=== PATIENT | male | born 1960 | race Caucasian/White ===

== ENCOUNTER 2017-02-21 11:00 | Day surgery (SDC) | payer MEDICARE, MEDICAID ==
[2017-02-20 13:15] LABS: BASOPHILS % (AUTO) 0.3 % (0-1); EOSINOPHILS # (AUTO) 0.2 X10'3 (0-0.9); EOSINOPHILS % (AUTO) 2.5 % (0-6); LYMPHOCYTES # (AUTO) 2.4 X10'3 (1.1-4.8); LYMPHOCYTES % (AUTO) 31.4 % (21-51); MEAN CORPUSCULAR HEMOGLOBIN 31.1 PG (27.0-31.0); MEAN CORPUSCULAR HGB CONC 33.6 % (33.0-36.5); MEAN CORPUSCULAR VOLUME 92.6 FL (78-98); MEAN PLATELET VOLUME 8.5 FL (7.4-10.4); MONOCYTES # (AUTO) 0.7 X10'3 (0-0.9); MONOCYTES % (AUTO) 8.8 % (2-12); NEUTROPHILS # (AUTO) 4.3 X10'3 (1.8-7.7); PRE OP HEMATOCRIT 40.7 % (42.0-52.0); PRE OP HEMOGLOBIN 13.7 g/dL (14.0-17.9); PRE OP PLATELET COUNT 262 X10'3 (140-440); RED BLOOD COUNT 4.39 X10'6 (4.70-6.10); RED CELL DISTRIBUTION WIDTH 13.8 % (11.5-14.5)
[2017-02-20 13:30] LABS: ALBUMIN 3.8 G/DL (3.4-5.0); ALKALINE PHOSPHATASE 54 IU/L (46-116); BLOOD UREA NITROGEN 17 MG/DL (7-18); BUN/CREATININE RATIO 22.4 (5.4-32.0); CALCIUM 9.1 MG/DL (8.5-10.1); CHLORIDE 102 MMOL/L (99-107); CREATININE 0.76 MG/DL (0.60-1.10); PRE OP ALT 36 U/L (30-65); PRE OP ANION GAP 6 (8-16); PRE OP AST 21 U/L (10-37); PRE OP BILIRUB, TOTAL 0.3 MG/DL (0.0-1.0); PRE OP GLUCOSE 98 MG/DL (70-104); PRE OP POTASSIUM 3.9 MMOL/L (3.4-5.1); PRE OP SODIUM 140 MMOL/L (135-145); TOTAL CARBON DIOXIDE 32.5 MMOL/L (24-32); TOTAL PROTEIN 7.6 G/DL (6.4-8.2); eGFR > 90 ML/MIN
[2017-02-21] VITALS (8 sets, daily range): BP systolic 122–136; BP diastolic 71–82
[~2017-02-21] VITALS: Ht 177.8 cm; Wt 61.1 kg
[~2017-02-21 11:00] MED LIST: PHEN100C12 PO; ceFAZolin 2gm in dextrose, iso 100 ML IV ONE; famotidine 20mg tablet PO ONE; ringers solution, lacted 1,000 ML IV SCH
[2017-02-21] MEDS ORDERED: LIDOcaine 1% (10mg/ml) 2ml vial ONE (12:24)
[2017-02-21] MEDS ORDERED: ceFAZolin 1000mg inj ONE (15:25)
[2017-02-21] MEDS ORDERED: BUPIVAcaine 0.5% inj/PF 30 ML ONE (15:25)
[2017-02-21] MEDS ORDERED: neostigmine methylsulfate 1 MG/ML 10ml vial ONE (16:31)
[2017-02-21] MEDS ORDERED: glycopyrrolate 0.2mg/ml inj ONE (16:31)
[2017-02-21] MEDS ORDERED: sevoflurane 250ml liquid IH ONE (16:31)
[2017-02-21] MEDS ORDERED: fentaNYL/PF 50MCG/1 ML 2ML syringe ONE (16:36)
[2017-02-21] MEDS ORDERED: midazolam 2 mg/2 ml injection ONE ×2 (16:36)
[2017-02-21] MEDS ORDERED: rocuronium 10mg/ml inj IV ONE (16:38)
[2017-02-21] MEDS ORDERED: propofol inj 20 ML IV ONE (16:38)
[2017-02-21] MEDS ORDERED: ringers solution, lacted 1,000 ML IV SCH (17:04)
[2017-02-21] MEDS ORDERED: meperidine/PF 25mg/ml syringe IV PRN ×3 (17:05)
[2017-02-21] MEDS ORDERED: ondansetron/PF 4mg/2ml inj IV PRN (17:05)
[2017-02-21] MEDS ORDERED: proCHLORperazine 10 MG/2 ml inj IV PRN (17:05)
[2017-02-21] MEDS ORDERED: meperidine/PF 50mg/ml syringe ONE (17:31)
== END 2017-02-21 18:50 | disposition home or self-care (01) ==
LOC: PAS 11:00
PROVIDERS: ATTEND Surgery
DX: K46.9 Unspecified abdominal hernia without obstruction or gangrene (principal); F17.210 Nicotine dependence, cigarettes, uncomplicated; F10.21 Alcohol dependence, in remission; F12.90 Cannabis use, unspecified, uncomplicated; F41.9 Anxiety disorder, unspecified; G40.909 Epilepsy, unspecified, not intractable, without status epilepticus; Z98.890 Other specified postprocedural states; Z79.899 Other long term (current) drug therapy; Z87.820 Personal history of traumatic brain injury
CPT/HCPCS: 36415; 49652; 80053; 85025; 93005; A4315; A6258; C1727; C1781; J0690; J2175; J2250; J2405; J2704; J2710; J3010; J3490; J7120

== ENCOUNTER 2017-05-15 11:10 | Emergency (ER) | payer MEDICARE, MEDICAID ==
[~2017-05-15] VITALS: Ht 177.8 cm; Wt 56.0 kg
[~2017-05-15 11:10] MED LIST changes: -ceFAZolin 2gm in dextrose, iso 100 ML IV ONE; -famotidine 20mg tablet PO ONE; -ringers solution, lacted 1,000 ML IV SCH
[2017-05-15 11:25] VITALS: BP 144/82
[2017-05-15] MEDS ORDERED: CEPH-571 PO (11:53)
== END 2017-05-15 12:05 | disposition home or self-care (01) ==
LOC: ER 11:11
DX: L03.116 Cellulitis of left lower limb (principal); F12.10 Cannabis abuse, uncomplicated
CPT/HCPCS: 99283

== ENCOUNTER 2018-10-12 12:13 | Emergency (ER) | payer MEDICARE, MEDICAID ==
[~2018-10-12] VITALS: Ht 177.8 cm; Wt 63.0 kg
[~2018-10-12 12:13] MED LIST changes: +CEPH-571 PO
[2018-10-12] MEDS ORDERED: phenytoin sod ER 100mg capsule PO ONE (13:30)
[2018-10-12] MEDS ORDERED: acetaminophen w/codeine (30MG) #3 tablet PO ONE (13:30)
[2018-10-12] MEDS ORDERED: ibuprofen tablet 400 MG TABLET PO ONE (13:30)
[2018-10-12] MEDS ORDERED: IBUP-1984 PO (13:48)
[2018-10-12] MEDS ORDERED: PHEN100C4 PO (13:48)
[2018-10-12 14:25] VITALS: BP 114/70
== END 2018-10-12 14:27 | disposition home or self-care (01) ==
LOC: ER 12:13
DX: R07.81 Pleurodynia (principal); R06.02 Shortness of breath; F17.210 Nicotine dependence, cigarettes, uncomplicated; Z79.2 Long term (current) use of antibiotics; Z79.899 Other long term (current) drug therapy
CPT/HCPCS: 99284

== ENCOUNTER → 2018-10-28 | Emergency (ER) | payer MEDICARE, MEDICAID ==
[~2018-10-28] VITALS: Ht 175.3 cm; Wt 61.4 kg
[~2018-10-28] MED LIST changes: +PHEN100C4 PO; +naproxen 500mg tablet PO ONE
--- NOTE | 2018-10-28 03:48 | NUR ---
PT GOING TO CT VIA WC
[2018-10-28 05:34] VITALS: BP 155/65
== END | disposition home or self-care (01) ==
LOC: ER 02:16
DX: S00.03XA Contusion of scalp, initial encounter (principal); M25.512 Pain in left shoulder; F12.90 Cannabis use, unspecified, uncomplicated; Z79.2 Long term (current) use of antibiotics; Z59.0 Homelessness; Z79.899 Other long term (current) drug therapy; Y08.89XA Assault by other specified means, initial encounter; Y93.89 Activity, other specified; Y92.89 Other specified places as the place of occurrence of the external cause; Y99.8 Other external cause status
CPT/HCPCS: 70450; 73030; 99284

== ENCOUNTER 2019-07-15 17:35 | Emergency (ER) | payer MEDICARE, MEDICAID ==
[~2019-07-15] VITALS: Ht 170.2 cm; Wt 60.0 kg
[~2019-07-15 17:35] MED LIST changes: -naproxen 500mg tablet PO ONE
[2019-07-15] MEDS ORDERED: aspirin 81mg tab.chew PO ONE (17:45)
--- NOTE | 2019-07-15 18:24 | NUR ---
Pt. rambling about many past medical complaints, unable to identify a cheif complaint for today.
[2019-07-15 18:35] LABS: BASOPHILS # (AUTO) 0.1 X10'3 (0-0.2); BASOPHILS % (AUTO) 0.7 % (0-1); EOSINOPHILS # (AUTO) 0.1 X10'3 (0-0.9); EOSINOPHILS % (AUTO) 0.9 % (0-6); HEMATOCRIT 40.7 % (42.0-52.0); HEMOGLOBIN 13.7 g/dl (14.0-17.9); LYMPHOCYTES # (AUTO) 1.6 X10'3 (1.1-4.8); LYMPHOCYTES % (AUTO) 18.7 % (21-51); MEAN CORPUSCULAR HEMOGLOBIN 29.6 PG (27.0-31.0); MEAN CORPUSCULAR HGB CONC 33.7 g/dL (33.0-36.5); MEAN CORPUSCULAR VOLUME 88.1 FL (78-98); MEAN PLATELET VOLUME 7.7 FL (7.4-10.4); MONOCYTES # (AUTO) 0.6 X10'3 (0-0.9); MONOCYTES % (AUTO) 7.7 % (2-12); NEUTROPHILS # (AUTO) 6.1 X10'3 (1.8-7.7); PLATELET COUNT 314 X10'3 (140-440); RED BLOOD COUNT 4.63 X10'6 (4.70-6.10); RED CELL DISTRIBUTION WIDTH 13.6 % (11.5-14.5); WHITE BLOOD COUNT 8.5 X10'3 (4.5-11.0)
[2019-07-15 18:43] LABS: ALANINE AMINOTRANSFERASE 17 U/L (12-78); ALBUMIN 3.8 G/DL (3.4-5.0); ALKALINE PHOSPHATASE 54 IU/L (46-116); ANION GAP 11 (8-16); ASPARTATE AMINO TRANSFERASE 21 U/L (10-37); BILIRUBIN,TOTAL 0.4 MG/DL (0.1-1.0); BLOOD UREA NITROGEN 25 MG/DL (7-18); BUN/CREATININE RATIO 25.8 (5.4-32.0); CALCIUM 10.1 MG/DL (8.5-10.1); CHLORIDE 110 MMOL/L (99-107); CREATINE KINASE 200 U/L (39-308); CREATININE 0.97 MG/DL (0.60-1.10); GLUCOSE 103 MG/DL (70-104); SODIUM 152 MMOL/L (135-145); TOTAL CARBON DIOXIDE 31.4 MMOL/L (24-32); TOTAL PROTEIN 7.7 G/DL (6.4-8.2); eGFR 79 ML/MIN
[2019-07-15 18:47] LABS: PHENYTOIN (DILANTIN) < 0.5 UG/ML (10.0-20.0)
[2019-07-15] MEDS ORDERED: IBUP-1984 PO (19:24)
[2019-07-15] MEDS ORDERED: PHEN100C4 PO (19:32)
[2019-07-15 19:56] LABS: ETHANOL < 0.010 GM/DL (0.0-0.010)
[2019-07-15] MEDS ORDERED: phenytoin sod ER 100mg capsule PO ONE (20:10)
[2019-07-15 20:21] LABS: CLARITY,URINE CLEAR (Clear); COLOR,URINE YELLOW (Yellow); GLUCOSE, URINE NEGATIVE (Neg); KETONES,URINE NEGATIVE (Neg); LEUKOCYTE ESTERASE ,URINE NEGATIVE (Neg); NITRITES, URINE NEGATIVE (Neg); OCCULT BLOOD,URINE NEGATIVE (Neg); PH,URINE 5.5 (4.8-8.0); PROTEIN,URINE NEGATIVE (Neg); UROBILINOGEN,URINE 0.2 E.U/dL (0.2-1.0)
[2019-07-15 20:22] LABS: UA COLLECTION TYPE URINAL
[2019-07-15 20:30] VITALS: BP 128/87
[2019-07-15 21:11] LABS: URINE AMPHETAMINE SCREEN POSITIVE (Neg); URINE BARBITUATE SCREEN NEGATIVE (Neg); URINE BENZODIAZEPINES SCREEN NEGATIVE (Neg); URINE CANNABINOID SCREEN POSITIVE (Neg); URINE COCAINE SCREEN NEGATIVE (Neg); URINE METHADONE SCREEN NEGATIVE (Neg); URINE OPIATE SCREEN NEGATIVE (Neg); URINE PHENCYCLIDINE SCREEN NEGATIVE (Neg)
== END 2019-07-15 20:32 | disposition home or self-care (01) ==
LOC: ER 17:35
DX: G40.909 Epilepsy, unspecified, not intractable, without status epilepticus (principal); E87.0 Hyperosmolality and hypernatremia; R00.2 Palpitations; R06.02 Shortness of breath; F17.200 Nicotine dependence, unspecified, uncomplicated; F12.90 Cannabis use, unspecified, uncomplicated; Z60.2 Problems related to living alone; Z86.69 Personal history of other diseases of the nervous system and sense organs; Z79.899 Other long term (current) drug therapy
CPT/HCPCS: 36415; 71045; 80053; 80185; 80305; 80320; 81003; 82550; 83880; 84484; 85025; 85610; 93005; 99285

== ENCOUNTER 2019-09-20 16:02 | Emergency (ER) | payer MEDICARE, MEDICAID ==
[~2019-09-20] VITALS: Ht 175.3 cm; Wt 59.1 kg
[~2019-09-20 16:02] MED LIST changes: -CEPH-571 PO; +IBUP-1984 PO
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
--- NOTE | 2019-09-20 17:17 | NUR ---
pt to CT in wheelchair
[2019-09-20] MEDS ORDERED: normal saline 1000ML IV soln IVB ONE (17:35)
[2019-09-20 17:38] LABS: BASOPHILS # (AUTO) 0.1 X10'3 (0-0.2); BASOPHILS % (AUTO) 1.2 % (0-1); EOSINOPHILS # (AUTO) 0.4 X10'3 (0-0.9); EOSINOPHILS % (AUTO) 3.9 % (0-6); HEMATOCRIT 40.2 % (42.0-52.0); HEMOGLOBIN 13.3 g/dl (14.0-17.9); LYMPHOCYTES # (AUTO) 2.2 X10'3 (1.1-4.8); LYMPHOCYTES % (AUTO) 22.3 % (21-51); MEAN CORPUSCULAR HEMOGLOBIN 29.9 PG (27.0-31.0); MEAN CORPUSCULAR HGB CONC 33.1 g/dL (33.0-36.5); MEAN CORPUSCULAR VOLUME 90.3 FL (78-98); MEAN PLATELET VOLUME 8.1 FL (7.4-10.4); MONOCYTES # (AUTO) 0.8 X10'3 (0-0.9); MONOCYTES % (AUTO) 7.7 % (2-12); NEUTROPHILS # (AUTO) 6.4 X10'3 (1.8-7.7); NEUTROPHILS % (AUTO) 64.9 % (42-75); PLATELET COUNT 291 X10'3 (140-440); RED BLOOD COUNT 4.46 X10'6 (4.70-6.10); RED CELL DISTRIBUTION WIDTH 14.7 % (11.5-14.5); WHITE BLOOD COUNT 9.9 X10'3 (4.5-11.0)
[2019-09-20 17:53] LABS: ALANINE AMINOTRANSFERASE 15 U/L (12-78); ALBUMIN 3.4 G/DL (3.4-5.0); ALBUMIN/GLOBULIN RATIO 0.9 (1.1-1.5); ALKALINE PHOSPHATASE 52 IU/L (46-116); ANION GAP 8 (8-16); ASPARTATE AMINO TRANSFERASE 16 U/L (10-37); BILIRUBIN,TOTAL 0.5 MG/DL (0.1-1.0); BLOOD UREA NITROGEN 18 MG/DL (7-18); BUN/CREATININE RATIO 29.5 (5.4-32.0); CALCIUM 8.7 MG/DL (8.5-10.1); CHLORIDE 106 MMOL/L (99-107); CREATININE 0.61 MG/DL (0.60-1.10); GLUCOSE 97 MG/DL (70-104); POTASSIUM 3.5 MMOL/L (3.5-5.1); SODIUM 141 MMOL/L (135-145); TOTAL CARBON DIOXIDE 26.8 MMOL/L (24-32); TOTAL PROTEIN 7.2 G/DL (6.4-8.2); eGFR > 90 ML/MIN
[2019-09-20 17:58] LABS: TROPONIN I < 0.04 NG/ML (0.0-0.05)
[2019-09-20 17:59] LABS: ETHANOL < 0.010 GM/DL (0.0-0.010)
[2019-09-20 18:10] LABS: PHENYTOIN (DILANTIN) 4.4 UG/ML (10.0-20.0)
--- NOTE | 2019-09-20 18:11 | NUR ---
pt asking for something to eatStacy TRANSFORMATION ANALYST gave verbal order for reg diet, gave pt jello, juice and crackers, liliya well, no n/v
--- NOTE | 2019-09-20 19:00 | NUR ---
pt has also had a sandwich, used urinal, 100ml of yellow urine out, sent sample to lab
[2019-09-20 19:22] LABS: CLARITY,URINE CLEAR (Clear); COLOR,URINE YELLOW (Yellow); GLUCOSE, URINE NEGATIVE (Neg); KETONES,URINE NEGATIVE (Neg); LEUKOCYTE ESTERASE ,URINE NEGATIVE (Neg); NITRITES, URINE NEGATIVE (Neg); OCCULT BLOOD,URINE NEGATIVE (Neg); PH,URINE 5.5 (4.8-8.0); PROTEIN,URINE NEGATIVE (Neg); UROBILINOGEN,URINE 0.2 E.U/dL (0.2-1.0)
[2019-09-20 19:23] LABS: UA COLLECTION TYPE URINAL
[2019-09-20 19:35] LABS: URINE AMPHETAMINE SCREEN POSITIVE (Neg); URINE BARBITUATE SCREEN NEGATIVE (Neg); URINE BENZODIAZEPINES SCREEN NEGATIVE (Neg); URINE CANNABINOID SCREEN NEGATIVE (Neg); URINE COCAINE SCREEN NEGATIVE (Neg); URINE METHADONE SCREEN NEGATIVE (Neg); URINE OPIATE SCREEN NEGATIVE (Neg); URINE PHENCYCLIDINE SCREEN NEGATIVE (Neg)
--- NOTE | 2019-09-20 20:03 | NUR ---
pt able to amb with slightly unsteady gait using walker
[2019-09-20 20:42] VITALS: BP 135/82
== END 2019-09-20 20:43 | disposition home or self-care (01) ==
LOC: ER 16:03
DX: F15.90 Other stimulant use, unspecified, uncomplicated (principal); R53.1 Weakness; F12.90 Cannabis use, unspecified, uncomplicated; Z60.2 Problems related to living alone; Z86.69 Personal history of other diseases of the nervous system and sense organs; Z98.890 Other specified postprocedural states; Z79.899 Other long term (current) drug therapy
CPT/HCPCS: 36415; 70450; 71045; 80053; 80185; 80305; 80320; 81003; 82140; 82948; 84484; 85025; 93005; 96360; 99285; J7030; 96361